=== PATIENT | male | born 1970 | race African-American/Black ===

== ENCOUNTER 2021-05-19 10:21 | Inpatient (IN) | payer OTHER ==
[2021-05-19] MEDS ORDERED: MAGNESIUM HYDROX 2400MG/30ML ORAL SUSPENSION 30 ML CUP PO PRN (10:52)
[2021-05-19] MEDS ORDERED: MENTHOL/PHENOL 1 EACH UD MM PRN (10:52)
[2021-05-19] MEDS ORDERED: ONDANSETRON *ODT* 4 MG TABLET SL PRN (10:52)
[2021-05-19] MEDS ORDERED: IBUPROFEN 400 MG TABLET (FP) PO PRN (10:52)
[2021-05-19] MEDS ORDERED: LORazepam 1 MG TABLET PO PRN (10:52)
[2021-05-19] MEDS ORDERED: MAGNESIUM CITRATE 300 ML BOTTLE PO PRN (10:52)
[2021-05-19] MEDS ORDERED: ACETAMINOPHEN 325 MG TABLET (FP) PO PRN (10:52)
[2021-05-19] MEDS ORDERED: MAG HYDROX/AL HYDROX/SIMETH 30 ML UNIT-DOSE CUP PO PRN (10:52)
[2021-05-19] MEDS ORDERED: BISMUTH SUBSALICYLATE 262 MG/15 ML BTL PO PRN (10:52)
[2021-05-19 10:57] VITALS: BMI 25.2
[2021-05-19] MEDS: PRENATAL VITAMINS W/ FOLIC ACID TABLET (FP) PO SCH (12:32)
[2021-05-19] MEDS: NAPROXEN 500 MG TABLET PO SCH ×2 (12:32→22:31)
[2021-05-19] MEDS ORDERED: amLODIPine BESYLATE 10 MG TABLET (FP) PO ONE (12:45)
[2021-05-19] MEDS: hydrOXYzine PAMOATE 25 MG CAPSULE (FP) PO SCH ×3 (13:36→22:32)
[2021-05-19 15:21] LABS: HEMATOCRIT 37.2 % (35.4-49); HEMOGLOBIN 12.6 GM/dL (11.7-16.9); MCH 30.7 pg (25.7-33.7); MCHC 33.8 g/dl (32.0-35.9); MEAN CELL VOLUME 90.7 fl (80-96); MEAN PLT VOLUME 8.3 fl (7.5-11.1); PLATELET COUNT 209 10^3/uL (134-434); RDW 13.9 % (11.9-15.9); WHITE BLOOD COUNT 5.3 K/mm3 (4.0-10.0)
[2021-05-19 15:38] LABS: ALBUMIN 3.6 g/dl (3.4-5.0); TOT PROT 7.5 g/dl (6.4-8.2)
[2021-05-19 15:41] LABS: BLOOD UREA NITROGEN 10.3 mg/dL (7-18); CREATININE 0.7 mg/dL (0.55-1.3)
[2021-05-19 15:43] LABS: BILIRUBIN,TOTAL 0.5 mg/dL (0.2-1)
[2021-05-19] MEDS: LORazepam 2 MG TABLET PO SCH ×2 (17:49→22:31)
[2021-05-19] MEDS: METHOCARBAMOL 500 MG TABLET PO PRN (17:52)
[2021-05-19] MEDS ORDERED: SUVOREXANT 10 MG TABLET PO PRN (22:00)
[2021-05-19] MEDS ORDERED: MELATONIN 5 MG TABLETS PO SCH (22:00)
[2021-05-19] MEDS: THIAMINE HCL 100 MG TABLET (FP) PO SCH (22:31)
[2021-05-20] MEDS: LORazepam 2 MG TABLET PO SCH ×4 (05:25→23:19)
[2021-05-20] MEDS: hydrOXYzine PAMOATE 25 MG CAPSULE (FP) PO SCH ×5 (05:25→22:59)
[2021-05-20] MEDS: METHOCARBAMOL 500 MG TABLET PO PRN ×2 (10:26→18:41)
[2021-05-20] MEDS: amLODIPine BESYLATE 10 MG TABLET (FP) PO SCH (10:26)
[2021-05-20] MEDS: PRENATAL VITAMINS W/ FOLIC ACID TABLET (FP) PO SCH (10:28)
[2021-05-20] MEDS: NAPROXEN 500 MG TABLET PO SCH ×2 (12:03→22:59)
[2021-05-20] MEDS ORDERED: POTASSIUM CHLORIDE ORAL LIQUID 20 MEQ/15 ML PO ONE (15:37)
[2021-05-20] MEDS: LISINOPRIL 10 MG TABLET PO SCH (22:59)
[2021-05-20] MEDS: THIAMINE HCL 100 MG TABLET (FP) PO SCH (22:59)
[2021-05-21] MEDS: hydrOXYzine PAMOATE 25 MG CAPSULE (FP) PO SCH ×5 (05:37→23:27)
[2021-05-21] MEDS: LORazepam 1 MG TABLET PO SCH ×4 (05:38→22:11)
[2021-05-21] MEDS: ACETAMINOPHEN 325 MG TABLET (FP) PO PRN ×2 (05:40→16:54)
[2021-05-21] MEDS: METHOCARBAMOL 500 MG TABLET PO PRN ×2 (05:42→16:54)
[2021-05-21] MEDS: NAPROXEN 500 MG TABLET PO SCH ×2 (10:31→22:30)
[2021-05-21] MEDS: amLODIPine BESYLATE 10 MG TABLET (FP) PO SCH (10:31)
[2021-05-21] MEDS: LISINOPRIL 10 MG TABLET PO SCH ×2 (10:31→22:11)
[2021-05-21] MEDS: PRENATAL VITAMINS W/ FOLIC ACID TABLET (FP) PO SCH (10:32)
[2021-05-21] MEDS: THIAMINE HCL 100 MG TABLET (FP) PO SCH (22:11)
[2021-05-22] MEDS ORDERED: LORazepam 0.5 MG TABLET PO PRN
[2021-05-22] MEDS: hydrOXYzine PAMOATE 25 MG CAPSULE (FP) PO SCH ×2 (05:39→10:40)
[2021-05-22] MEDS: LORazepam 0.5 MG TABLET PO SCH ×2 (05:39→10:38)
[2021-05-22] MEDS: LISINOPRIL 10 MG TABLET PO SCH (10:38)
[2021-05-22] MEDS: amLODIPine BESYLATE 10 MG TABLET (FP) PO SCH (10:38)
[2021-05-22] MEDS: NAPROXEN 500 MG TABLET PO SCH (10:38)
[2021-05-22] MEDS: PRENATAL VITAMINS W/ FOLIC ACID TABLET (FP) PO SCH (10:40)
[2021-05-22 13:03] VITALS: BP 124/70; PULSE 103; TEMP 97.8
[2021-05-23] MEDS ORDERED: LORazepam 0.5 MG TABLET PO ONE (05:00)
== END 2021-05-22 14:02 | disposition home or self-care (01) | DRG 775 ==
LOC: YASAS 10:21 → Y6N 11:07
PROVIDERS: ADMIT Allergy & Immunology; ATTEND Allergy & Immunology
PROC: HZ2ZZZZ Detoxification Services for Substance Abuse Treatment (ICD-10-PCS; principal; 2021-05-19)
DX: F10.230 Alcohol dependence with withdrawal, uncomplicated (principal); F10.220 Alcohol dependence with intoxication, uncomplicated; F10.24 Alcohol dependence with alcohol-induced mood disorder; F10.282 Alcohol dependence with alcohol-induced sleep disorder; I10 Essential (primary) hypertension; E87.6 Hypokalemia; E78.5 Hyperlipidemia, unspecified; R73.09 Other abnormal glucose; M54.30 Sciatica, unspecified side; Z91.013 Allergy to seafood; Z56.0 Unemployment, unspecified; Z59.00 Homelessness unspecified
CPT/HCPCS: 36415; 80053; 82962; 85027; 86780; 93005; 93010; C9803; U0003; U0005